=== PATIENT | male | born 1960 | race Caucasian/White ===

== ENCOUNTER 2022-05-08 05:14 | Day surgery (SDC) | payer OTHER ==
[2022-05-06 10:55] LABS: COVID AG,FIA SOURCE NASOPHARYNGEAL
[~2022-05-08] VITALS: Ht 177.8 cm; Wt 57.3 kg
[~2022-05-08 05:14] MED LIST: SODIUM CHLORIDE 0.9% 1,000 ML IV ONE
[2022-05-08] MEDS ORDERED: SODIUM CHLORIDE 0.9% 1,000 ML ONE (05:21)
[2022-05-08] MEDS ORDERED: LIDOCAINE/PF 2% 5 ML VIAL IM ONE (12:00)
[2022-05-08] MEDS ORDERED: PROPOFOL 1% 20 ML VIAL IVP ONE (12:00)
== END 2022-05-08 08:30 | disposition home or self-care (01) ==
LOC: SURGERY 05:14 → EDSTATUS 07:00 → SURGERY 08:30
PROVIDERS: ATTEND Surgery
DX: K62.89 Other specified diseases of anus and rectum (principal); K52.9 Noninfective gastroenteritis and colitis, unspecified; Z20.822 Contact with and (suspected) exposure to COVID-19; Z98.890 Other specified postprocedural states; Z85.038 Personal history of other malignant neoplasm of large intestine; Z79.899 Other long term (current) drug therapy
CPT/HCPCS: 87426; 45331; C9803; C1769; J2704; J3490; J7030